=== PATIENT | male | born 1980 | race Caucasian/White ===

== ENCOUNTER 2021-04-11 19:24 | Emergency (ER) | payer BC ==
[~2021-04-11 19:24] MED LIST: FLEXERIL 10 MG10 MG PO; FLOMAX0.4 MG PO; IBUPROFEN800 MG PO; NORCO 5-325 TA1 EACH PO; ZOFRAN ODT 4 MG4 MG SL
[2021-04-11 20:05] LABS: HEMOGLOBIN 16.2 gm/dl (14.0-17.5); RED BLOOD COUNT 5.43 M/UL (4.20-5.50); WHITE BLOOD COUNT 11.4 K/UL (4.5-11.0)
[2021-04-11 20:28] LABS: BUN/CREATININE RATIO 19 (0-10)
[2021-04-11] MEDS ORDERED: HYDROCODON-ACE1 EAC4 PO (22:24)
[2021-04-11] MEDS ORDERED: ZOFRAN4 MG PO (22:24)
== END 2021-04-11 22:33 | disposition home or self-care (01) ==
LOC: ER1 19:24
PROVIDERS: Preventive Medicine Occupational Medicine
DX: N20.2 Calculus of kidney with calculus of ureter (principal); I10 Essential (primary) hypertension
CPT/HCPCS: 80053; 81001; 85025; 85652; 86140; 87086; 96374; 96375; 99284; J1170; J1885; J2405